=== PATIENT | female | born 1980 | race Two or more races ===

== ENCOUNTER 2017-07-17 11:07 | Emergency (ER) | payer SELFPAY ==
[~2017-07-17] VITALS: Ht 157.5 cm; Wt 81.6 kg
[2017-07-17] MEDS ORDERED: LIDOCAINE /MPF 1% VIAL 5 ML VIAL ONE (11:26)
[2017-07-17] MEDS ORDERED: TDAP [DIPH/PERTUSSIS/TET] 0.5 ML VIAL IM ONE ×2 (11:28→11:30)
[2017-07-17] MEDS ORDERED: LIDOCAINE HCL/PF 1% 30 ML VIAL TP ONE (11:30)
--- NOTE | 2017-07-17 11:34 | NUR ---
PA AT BS FOR WOUND PROCEDURE.
[2017-07-17 12:30] VITALS: BP 124/80
--- NOTE | 2017-07-17 12:30 | NUR ---
Patient discharged to home in stable condition. Written and verbal after care instructions given. Patient verbalizes understanding of instruction.
== END 2017-07-17 12:35 | disposition home or self-care (01) ==
LOC: ER 11:09
DX: S01.01XA Laceration without foreign body of scalp, initial encounter (principal); W22.8XXA Striking against or struck by other objects, initial encounter; Y93.89 Activity, other specified; Y92.89 Other specified places as the place of occurrence of the external cause; Y99.8 Other external cause status
CPT/HCPCS: 12002; 90471; 90715; 99283; A4217; A4606; A6402; A6403; J3490 ×2; Z7610